=== PATIENT | female | born 1935 | race Caucasian/White ===

== ENCOUNTER → 2017-06-21 | Outpatient (CLI) | payer BC ==
[~2017-06-21] MED LIST: ADVIN25050 INH; ALBUAER INH; CALC500C70 PO; CRDCD180 PO; FISHOIL PO; HYZ/50125 PO; LORA10TA44 PO; PRED20TA PO
--- NOTE | 2017-06-21 07:57 | MAMMOGRAPHY REPORT ---
BILATERAL DIGITAL SCREENING MAMMOGRAM TOMOSYNTHESIS WITH CAD: 06/21/2017 CLINICAL HISTORY: Routine screening. TECHNIQUE: Breast tomosynthesis in addition to standard 2D mammography was performed. Current study was also evaluated with a Computer Aided Detection (CAD) system. COMPARISON: Comparison is made to exams dated: 06/20/2016 mammogram, 06/16/2015 mammogram, 4 mammogram, 06/06/2013 mammogram, 05/30/2012 mammogram, and 05/25/2011 mammogram - [facility]. BREAST COMPOSITION: The tissue of both breasts is heterogeneously dense, which may obscure small mas ses. FINDINGS: No suspicious masses, calcifications, or areas of architectural distortion are noted in ei ther breast. There has been no significant interval change compared to prior exams. Scattered bilater al benign-appearing calcifications are not significantly changed. Left superior breast asymmetry is stable dating back to at least the 2007 exam. IMPRESSION: ACR BI-RADS CATEGORY 2: BENIGN There is no mammographic evidence of malignancy. A 1 year screening mammogram is recommended. The pa tient will receive written notification of the results. Approximately 10% of breast cancers are not detected with mammography. A negative mammographic report should not delay biopsy if a clinically suggestive mass is present. Patricia Meyers M.D. ah/:06/21/2017 07:49:37 Medical Equipment Repairer: Asael ARTIS(R)(M), [facility] letter sent: Normal 1/2 BI-RADS Code: ACR BI-RADS Category 2: Benign
== END | disposition home or self-care (01) ==
LOC: C.MAMM 07:30
PROVIDERS: ATTEND Family Medicine
DX: Z12.31 Encounter for screening mammogram for malignant neoplasm of breast (principal)

== ENCOUNTER → 2017-07-11 | Outpatient (CLI) | payer BC | END | disposition home or self-care (01) | LOC: C.RDSM 12:26 | PROVIDERS: ATTEND Family Medicine | DX: M25.512 Pain in left shoulder (principal) ==

== ENCOUNTER → 2017-09-21 | Outpatient (CLI) | payer BC | END | disposition home or self-care (01) | LOC: C.RDSM 10:48 | PROVIDERS: ATTEND Orthopaedic Surgery Sports Medicine | DX: Z96.659 Presence of unspecified artificial knee joint (principal) ==

== ENCOUNTER → 2017-09-26 | Outpatient (CLI) | payer BC ==
--- NOTE | 2017-09-27 07:35 | DIAGNOSTIC IMAGING REPORT ---
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 Right knee pain. Evaluate for evidence of loosening. COMPARISON STUDY: Right knee radiographs September 21, 2017. TECHNIQUE: 27 mCi of technetium 99m M MDP was injected IV at 10:15 AM on September 26, 2017. Blood flow and blood pool images were obtained followed by 30 delayed phase imaging of the knees in multiple projections as well as the body imaging. SPECT imaging of the knees was also performed. FINDINGS: No evidence of hyperemia is noted. Expected soft tissue and renal uptake is present. Uptake within the shoulders and right midfoot is degenerative. Mild multifocal uptake within the spine is degenerative. There is mild multifocal uptake adjacent to each knee arthroplasty. There is no convincing scintigraphic evidence for loosening. IMPRESSION: 1. No evidence of hyperemia. 2. Mild multifocal uptake adjacent to the bilateral knee arthroplasties which is considered within normal limits. No scintigraphic evidence for loosening. Electronically signed by: Que Welch M.D. 09/27/2017 7:34 AM Dictated Date/Time: 09/26/2017 2:17 PM
== END | disposition home or self-care (01) ==
LOC: C.NUCL 09:37
PROVIDERS: ATTEND Orthopaedic Surgery Sports Medicine
DX: Z96.659 Presence of unspecified artificial knee joint (principal)